=== PATIENT | male | born 1950 | race Caucasian/White ===

== ENCOUNTER 2023-10-31 16:26 | Emergency (ER) | payer MEDICARE, OTHER, SELFPAY ==
[2023-10-31 16:35] VITALS: BP 102/77
[2023-10-31 16:52] LABS: % Basophils 0.5 % (0-2); % Eosinophils 3.8 % (0-6); % Immature Granulocytes 0.4 % (0-0.5); % Monocytes 9.8 % (1.7-9.3); % Neutrophils 60.5 % (42.2-75.2); Absolute Eosinophils 0.2 10^3/uL (0-0.7); Absolute Lymphocytes 1.4 10^3/uL (1.2-3.4); Absolute Monocytes 0.6 10^3/uL (0.1-0.6); Absolute Neutrophils 3.4 10^3/uL (1.4-6.5); Hematocrit 38.7 % (39.0-52.0); Hemoglobin 13.8 g/dL (13.0-18.0); Mean Corp Hgb Conc. 35.7 g/dL (33.0-37.0); Mean Corpuscular Hgb 32.5 pg (27.0-31.0); Mean Corpuscular Volume 91.3 fL (80.0-94.0); Mean Platelet Volume 9.2 fL (7.4-10.4); Nucleated Red Blood Cells % 0 % (-); Platelet Count 296 10^3/uL (130-400); Red Blood Cell Count 4.24 10^6/uL (4.70-6.10); Red Cell Dist. Width 13.8 % (11.5-14.5); White Blood Cell Count 5.6 10^3/uL (4.8-10.8)
[2023-10-31 17:10] LABS: ALT (SGPT) 23 U/L (0-50); AST (SGOT) 25 U/L (17-59); Albumin 4.7 g/dl (3.5-5.0); Alkaline Phosphatase 61 U/L (38-126); Blood Urea Nitrogen 15 mg/dl (9-20); Calcium 9.8 mg/dl (8.4-10.2); Carbon Dioxide 26 mmol/L (22-30); Chloride 109 mmol/L (98-107); Glucose 94 mg/dl (70-99); Potassium 4.4 mmol/L (3.5-5.1); Sodium 143 mmol/L (135-145); Total Bilirubin 0.4 mg/dl (0.2-1.3); eGFR > 60.00
[2023-10-31 18:52] VITALS: BP 157/72
--- NOTE | 2023-10-31 18:58 | ED.GENMED ---
History of Present Illness
General
Chief Complaint: Cardiac Symptoms
Source: patient
Time Seen by Provider: 10/31/23 18:38
History of Present Illness
History of Present Illness:
73-year-old male presents to the emergency room complaining of palpitations. Over the past 2 or 3 weeks the patient has been experiencing what feels like irregular or extra heartbeats. He denies chest pain. He has noted shortness of breath with
exertion. This is particularly noticeable while he was in [place] recently. Less severe here at home. Patient has history of A-fib for which she had an ablation about 10 years ago. He has not had a recurrence up until now. Patient does not
typically have palpitations.
Past History
Past History
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
ED Past Surgical History: Appendectomy and Cardiac (Ablation)
Social History
Tobacco: Former smoker
Alcohol: None
Drug: None
Personal:
Living: with family
Employment: Employed
Family History
Family History: Other (Noncontributory)
Phy Exam
Physical Exam
Physical Exam:
General: Awake, Alert, Oriented X3. No acute distress.
Vitals: unremarkable
Head: Atraumatic
Eyes: Pupils equal, EOMI
Throat: Airway intact, no exudates
Neck: Trachea midline
Lungs: Clear and equal b/l
Heart: Occasional ectopy, regular rate, no murmurs
Abd: Soft, Nontender, No pulsatile mass
Neuro: Nonfocal
Skin: Warm, dry, no rash
Extremities: pulses equal b/l, trace edema
Course
Orders/Labs/Results
Orders:
Orders
10/31/23 16:28
EKG [Electrocardiogram (*1)] Urgent
Reason for Study: Palpitations
EKG- Treatment ONCE
10/31/23 16:43
CBC/With Diff [Complete Blood Count/With Diff] Urgent
CMP [Comprehensive Metabolic Panel] Urgent
10/31/23 18:55
Add On- LAB Urgent
Tests Added?: bnp, troponin
CR Chest - 2 Views Urgent
Comment:
Reason For Exam: palpitation, sob
10/31/23 19:12
NT-proBNP Urgent
Troponin I Urgent
Abnormal Lab Results
10/31/23
16:43
RBC 4.24 L 10^6/uL
(4.70-6.10)
Hct 38.7 L %
(39.0-52.0)
MCH 32.5 H pg
(27.0-31.0)
Monocytes % 9.8 H %
(1.7-9.3)
Chloride 109 H mmol/L
(98-107)
10/31/23 16:43
10/31/23 16:43
Vital Signs
Initial and Last Documented VS:
Initial Vital Signs
Temp Pulse Resp BP Pulse Ox
98.1 F 68 18 102/77 97
10/31/23 16:35 10/31/23 16:35 10/31/23 16:35 10/31/23 16:35 10/31/23 16:35
Last Documented Vital Signs
Temp Pulse Resp BP Pulse Ox
98.1 F 56 14 145/66 97
10/31/23 16:35 10/31/23 21:15 10/31/23 21:15 10/31/23 21:06 10/31/23 21:24
MDM/Problems Addressed
Differential Diagnosis Includes:
PVCs, PACs, A-fib
MDM/Problems Addressed:
EKG does not show evidence for A-fib. He does have a left bundle branch block which is new compared to 2019. Patient is not having any chest pain and so I do not believe this is reflective in any acute ischemia. 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 Labs
are unremarkable. Patient's heart rate is in the 50s for the most part and so I do not believe it would be appropriate to start a beta-bronson to help suppress his PVCs. Patient is quite stable. 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 He does have an appointment on November 16.
Chronic conditions affecting care: HTN and Arrhythmia (History of A-fib status post ablation)
*Radiology
Radiology exam reviewed: preliminary read by ED provider (Reviewed patient chest x-ray showed no acute disease)
*Pulse Oximetry
Patient hypoxic: no
*EKG
Interpreted by ED Provider?: Yes
Heart Rate: 60
Rate: normal
Rhythm: sinus and PVC's
QRS Pattern: left bundle branch block
Ischemia: no ischemia
*Joinery Machinist Interpretation
Rate: normal
Interpretation: abnormal
Rhythm: sinus and PVC's
*Critical Care Note
Total Time (30-74mins, 75-104mins- exclusive of procedures): Not Applicable
Patient Management
Social determinants of health affecting care: Strong social support
ED Attending Note
-
Portions of this chart may have been created with voice recognition software.� Occasional wrong word or��sound alike� substitutions may have occurred due to the inherent limitations of voice recognition software.
Discharge Plan
Departure
Patient Disposition: Home (Routine Discharge)
Date of Disposition: 10/31/23
Time of Disposition: 21:21
Patient with high blood pressure during this ER visit?: No
Condition: Good
Discharge Problem:
Palpitations, Frequent PVCs
Instructions: Ventricular premature beats, Palpitations
Prescriptions:
No Action
fluticasone propionate 1 SPRAY spray,suspension
1 spray intranasal DAILY
apixaban [Eliquis] 5 MG tablet
5 mg PO BID
Dentagel 1.1 Fluoride
1 1 applic PO HS
diltiazem HCl 180 MG capsule,extended release 24hr
180 mg PO DAILY Qty: 90 3RF
pantoprazole 40 MG tablet,delayed release (DR/EC)
40 mg PO DAILY Qty: 14 0RF
ondansetron 4 MG tablet,disintegrating
4 mg PO Q8HPRN PRN (Reason: Nausea/Vomiting) Qty: 5 0RF
Referrals:
Ez Sharif MD [Family Provider] -
Activity Restrictions/Additional Instructions:
Make sure you keep the appointment for cardiology which you have the November 16. Decrease caffeine use (and 5 hour energy drinks).
Interventions
Interventions:
*Risk Screen - Suicide Last Done: 10/31/23 16:35
*General Assessment Last Done: 10/31/23 16:35
*Neglect/Abuse Screening Last Done: 10/31/23 21:28
ED- Fall Risk Assessment Last Done: 10/31/23 19:14
*Nursing Disposition Last Done: 10/31/23 21:31
ED- Pulmonary Assessment Last Done: 10/31/23 19:14
ED- Cardiac Assessment Last Done: 10/31/23 19:14
Discharge Date and Time
Discharge Date/Time: 10/31/23 21:32
Print Language: ETHIOPIAN
[2023-10-31 19:00] VITALS: BP 138/56
[2023-10-31 19:42] LABS: NT-proBNP 263 pg/ml; Troponin I < 0.012 ng/ml
[2023-10-31 20:00] VITALS: BP 134/57
[2023-10-31 21:06] VITALS: BP 145/66
== END 2023-10-31 21:32 | disposition home or self-care (01) ==
LOC: EMR 16:26
PROVIDERS: Emergency Medicine; EMERGENCY PHYSICIAN Emergency Medicine; FAMILY PHYSICIAN Family Medicine
DX: R00.2 Palpitations (principal); I49.3 Ventricular premature depolarization; I10 Essential (primary) hypertension; I48.91 Unspecified atrial fibrillation; Z87.891 Personal history of nicotine dependence
CPT/HCPCS: 99285; 71046; 80053; 83880; 84484; 85025; 93005

== ENCOUNTER → 2023-11-21 09:49 | Outpatient (REF) | payer MEDICARE, OTHER, SELFPAY | LOC: RCS 09:49 | PROVIDERS: ATTENDING PHYSICIAN Internal Medicine Cardiovascular Disease; FAMILY PHYSICIAN Family Medicine | DX: I48.0 Paroxysmal atrial fibrillation (principal) | CPT/HCPCS: 93225; 93226 ==

== ENCOUNTER → 2023-12-04 13:47 | Outpatient (REF) | payer MEDICARE, OTHER, SELFPAY | LOC: HWRCS 13:47 | PROVIDERS: ATTENDING PHYSICIAN Internal Medicine Cardiovascular Disease; FAMILY PHYSICIAN Family Medicine | DX: I48.0 Paroxysmal atrial fibrillation (principal) | CPT/HCPCS: 93306 ==

== ENCOUNTER → 2024-05-22 13:56 | Outpatient (REF) | payer MEDICARE, OTHER, SELFPAY | LOC: CLAB 13:56 | PROVIDERS: ATTENDING PHYSICIAN Surgery | DX: Z86.19 Personal history of other infectious and parasitic diseases (principal) | CPT/HCPCS: 87624; 88112 ==

== ENCOUNTER 2024-06-26 06:12 | Day surgery (SDC) | payer MEDICARE, OTHER, SELFPAY | END 2024-06-26 10:13 | disposition home or self-care (01) | LOC: GI 06:12 | PROVIDERS: ATTENDING PHYSICIAN Surgery | DX: Z12.11 Encounter for screening for malignant neoplasm of colon (principal); K63.5 Polyp of colon; K57.30 Diverticulosis of large intestine without perforation or abscess without bleeding; K64.9 Unspecified hemorrhoids | CPT/HCPCS: 45380; 88305 ==